=== PATIENT | male | born 1995 | race Caucasian/White ===

== ENCOUNTER 2019-06-17 14:02 | Emergency (ER) | payer OTHER ==
[~2019-06-17] VITALS: Ht 188 cm; Wt 59.1 kg
[~2019-06-17 14:02] MED LIST: MAGIC MOUTHWASH1 M2 PO; MULTIPLE VITAMI1 CAP PO
[2019-06-17 14:07] VITALS: BP 139/87; TEMP 97.6
[2019-06-17 14:40] LABS: COLLECTION METHOD CLEAN CATCH
[2019-06-17 15:00] LABS: MUCOUS Present /lpf; PH 6 (5-8); SQUAMOUS EPITHELIAL None Seen /hpf; URINE APPEARANCE Clear; URINE BACTERIA None Seen /hpf; URINE BILIRUBIN Negative (NEGATIVE); URINE BLOOD 3+ (NEGATIVE); URINE COLOR Yellow; URINE GLUCOSE Negative (NEGATIVE); URINE KETONE Negative (NEGATIVE); URINE LEUKOCYTE ESTERASE Negative (NEGATIVE); URINE NITRATE Negative (NEGATIVE); URINE PROTEIN(semi-quant) Negative (NEGATIVE); URINE RBC >50 /hpf; URINE UROBILINOGEN Negative (NEGATIVE)
[2019-06-17 15:25] VITALS: PULSE 74
== END 2019-06-17 15:23 | disposition home or self-care (01) ==
LOC: COL.ER 14:02
PROVIDERS: Physician Assistant
DX: Z20.2 Contact with and (suspected) exposure to infections with a predominantly sexual mode of transmission (principal); R31.9 Hematuria, unspecified

== ENCOUNTER 2020-08-02 02:05 | Inpatient (IN) | payer SELFPAY ==
[~2020-08-02] VITALS: Ht 185.4 cm; Wt 62.6 kg
[2020-08-02 02:37] LABS: BASO # 0.1 (0.0-0.2); BASO % 0.7 % (0.0-2.0); EOS # 0.1 (0.0-0.7); GRAN # 5.7 (1.4-6.5); GRAN % 64.5 % (42.2-75.2); HEMATOCRIT 43.7 % (42.0-52.0); HEMOGLOBIN 14.7 g/dl (13.5-18.0); LYMPH # 2.4 (1.2-3.4); LYMPH % 26.5 % (20.0-51.0); MEAN CELL VOLUME 91 fl (80.0-100.0); MEAN CORPUSCULAR HEMOGLOBIN 31 pg (27.0-31.0); MEAN CORPUSCULAR HGB CONC 34 g/dl (33.0-37.0); MEAN PLATELET VOLUME 9.1 fl (7.4-10.4); MONO # 0.6 (0.1-0.6); MONO % 6.4 % (1.7-9.3); PLATELET COUNT 236 K/mm3 (130-400); RED BLOOD COUNT 4.81 M/mm3 (4.20-5.60); REDCELL DISTRIBUTION WIDTH-CV 12.4 % (11.5-14.5)
[2020-08-02 02:51] LABS: ALANINE AMINOTRANSFERASE 94 U/L (4-49); ALBUMIN 4.5 gm/dL (3.5-5.0); ALKALINE PHOSPHATASE 48 U/L (50-136); ANION GAP 14 mmol/L (7-16); AST,SGOT 115 U/L (15-37); BILIRUBIN,TOTAL 0.4 mg/dL (0.0-1.0); BLOOD UREA NITROGEN 15 mg/dL (9-20); CALCIUM 8.8 mg/dL (8.4-10.2); CARBON DIOXIDE 21 mmol/L (22-30); CHLORIDE 106 mmol/L (98-107); CREATININE, serum 0.97 (0.66-1.25); GLUCOSE 144 mg/dL (74-106); POTASSIUM 3.5 mmol/L (3.4-5.0); SODIUM 141 mmol/L (137-145); TOTAL PROTEIN 7.4 gm/dL (6.4-8.2)
[2020-08-02 03:03] LABS: TROPONIN-I < 0.012 ng/mL (0.000-0.035)
[2020-08-02 05:12] LABS: ARTERIAL BLD GAS O2 SATURATION 95.6 % (92-100); ARTERIAL BLOOD GAS BASE EXCESS -3.9 (-2-2); ARTERIAL BLOOD GAS HCO3 21.7 meq/L (22-26); ARTERIAL BLOOD GAS PCO2 41.5 mmHg (35-45); ARTERIAL BLOOD GAS pH 7.34 (7.35-7.45)
[2020-08-02 05:15] VITALS: BP 116/68; PULSE 90; TEMP 98.4
[2020-08-02 05:40] VITALS: BP 117/75; PULSE 94; TEMP 98.2
[2020-08-02 06:41] LABS: PROTHROMBIN TIME 11.5 SECONDS (9.7-12.8)
[2020-08-02 06:46] LABS: ACETAMINOPHEN < 10 ug/mL (10-30); SALICYLATE < 1.0 mg/dL
[2020-08-02 07:20] LABS: MAGNESIUM 2.2 mg/dL (1.6-2.3); PHOSPHOROUS 5.8 mg/dL (2.5-4.5)
[2020-08-02 07:54] LABS: BILIRUBIN UNCONJUGATED 0.2 mg/dL (0.0-1.1); BILIRUBIN,DIRECT 0.1 mg/dL (0.0-0.4); BILIRUBIN,TOTAL 0.3 mg/dL (0.0-1.0); TOTAL PROTEIN 7.4 gm/dL (6.4-8.2)
[2020-08-02 08:00] VITALS: BP 111/68; PULSE 57; TEMP 97.9
--- NOTE | 2020-08-02 08:02 | NUR ---
PATIENT TOOK OPIATE OVER DOSE WHILE PARTYING
[2020-08-02 08:08] LABS: ALBUMIN 4.5 gm/dL (3.5-5.0)
--- NOTE | 2020-08-02 09:48 | NUR ---
PT ALERT/ORIENTED X4. SPEAKING IN FULL, CLEAR SENTENCES. NARCAN GTT STOPPED AT THIS TIME. DR. WEI AWARE. STATES TO CONTINUE TO MONITOR PT FOR THE NEXT 4-6 HOURS. VS WNL. PT AWARE OF PLAN.
[2020-08-02] MEDS ORDERED: PROAIR HFA0.09 MG/AC IH (11:17)
[2020-08-02] MEDS ORDERED: CLEOCIN HCL300 MG PO (11:17)
[2020-08-02 11:22] VITALS: O2SAT 94
--- NOTE | 2020-08-02 12:15 | NUR ---
PT REQUESTING TO SIGN OUT AMA. DR. WEI AWARE. VORB ORDER GIVEN VIA PHONE TO HAVE PHARMACY SENT DOSES FOR CLINDAMYCIN HOME WITH PT UNTIL HE IS ABLE TO FILL PRESCRIPTION TOMORROW. PHARMACY [facility] SENT BOTTLE TO ICU WITH 3 DOSES FOR PT TO TAKE HOME. PT SIGNED AMA FORM. BELONGINGS GIVEN TO PT. IV REMOVED. AMBULATES WITH STEADY GAIT TO EXIT.
== END 2020-08-02 12:15 | disposition left against medical advice (07) | DRG 917 ==
LOC: COL.ER 02:05 → ICU 04:30
PROVIDERS: Emergency Medicine; Nurse Practitioner Family; ADMIT Student in an Organized Health Care Education/Training Program
DX: T40.601A Poisoning by unspecified narcotics, accidental (unintentional), initial encounter (principal); J96.01 Acute respiratory failure with hypoxia; R74.01 Elevation of levels of liver transaminase levels; E87.6 Hypokalemia; F19.10 Other psychoactive substance abuse, uncomplicated; Z20.828 Contact with and (suspected) exposure to other viral communicable diseases; F17.210 Nicotine dependence, cigarettes, uncomplicated
CPT/HCPCS: 99223-AI; J2310; J2405; J3480; J7030; J7040

== ENCOUNTER → 2020-10-23 | Outpatient (REF) ==
[~2020-10-23] MED LIST changes: +CLEOCIN HCL300 MG PO; +FLEXERIL 1010 MG/TAB PO; +NAPROSYN500 MG PO; +PROAIR HFA0.09 MG/AC IH
== END ==
LOC: COL.LAB 00:15
DX: Z02.83 Encounter for blood-alcohol and blood-drug test (principal)

== ENCOUNTER 2021-01-19 17:13 | Emergency (ER) | payer SELFPAY ==
[~2021-01-19] VITALS: Ht 185.4 cm; Wt 59.1 kg
[~2021-01-19 17:13] MED LIST changes: -FLEXERIL 1010 MG/TAB PO; -NAPROSYN500 MG PO
[2021-01-19 17:25] VITALS: BP 125/61; TEMP 98.6
[2021-01-19] MEDS ORDERED: FLEXERIL 1010 MG/TAB PO (18:33)
[2021-01-19] MEDS ORDERED: NAPROSYN500 MG PO (18:33)
[2021-01-19 18:53] VITALS: PULSE 73
== END 2021-01-19 18:53 | disposition home or self-care (01) ==
LOC: COL.ER 17:13
DX: M54.5 Low back pain (principal); F17.290 Nicotine dependence, other tobacco product, uncomplicated
CPT/HCPCS: J1885